=== PATIENT | male | born 1985 | race African-American/Black ===

== ENCOUNTER 2019-04-01 03:05 | Emergency (ER) | payer MEDICAID ==
[~2019-04-01] VITALS: Ht 188 cm; Wt 81.6 kg
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
[2019-04-01 03:10] VITALS: BP 114/67
[2019-04-01] MEDS ORDERED: Lidocaine 1% 10mg/ml/Epi 0.005mg/ml 30ml vial INJ ONE ×2 (03:30→03:44)
[2019-04-01] MEDS ORDERED: Ketorolac 30mg Inj IV ONE (03:30)
[2019-04-01] MEDS ORDERED: Neosporin Oint Ud Pkt TOP ONE (03:30)
[2019-04-01] MEDS ORDERED: Morphine Sulfate 2mg/ml Inj(IV/IM USE ONLY) IVP ONE (03:30)
[2019-04-01] MEDS ORDERED: Tetanus/Diptheria/Pertussis IM ONE ×2 (03:30→03:39)
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
[2019-04-01] MEDS ORDERED: Neosporin Opth Oint ONE (03:38)
[2019-04-01] MEDS ORDERED: Morphine Sulfate 2mg/ml Inj(IV/IM USE ONLY) ONE (03:38)
[2019-04-01] MEDS ORDERED: Lidocaine 1% Plain 30 ml INJ ONE (03:38)
[2019-04-01 03:39] LABS: APPEARANCE,URINE CLEAR; BILIRUBIN, URINE NEGATIVE (NEGATIVE); COLOR,URINE PALE YELLOW; GLUCOSE, URINE (UA) NEGATIVE (NEGATIVE); KETONES,URINE NEGATIVE (NEGATIVE); LEUKOCYTE ESTERASE ,URINE NEGATIVE (NEGATIVE); NITRITE,URINE NEGATIVE (NEGATIVE); PH,URINE 5 (4.5-8.0); PROTEIN,URINE NEGATIVE (NEGATIVE); UROBILINOGEN,URINE NORMAL MG/DL (0.0-1.0)
[2019-04-01] MEDS ORDERED: Ketorolac 30mg Inj ONE (03:39)
[2019-04-01 03:40] LABS: BASOPHILS % (AUTO) 0.8 % (0.0-2.0); EOSINOPHILS % (AUTO) 1.2 % (0.0-3.0); HEMATOCRIT 48.4 % (42.0-52.0); HEMOGLOBIN 15.6 G/DL (14.2-18.0); LYMPHOCYTES % (AUTO) 34.5 % (20.0-45.0); MEAN CORPUSCULAR VOLUME 84 FL (80-99); MONOCYTES % (AUTO) 9.6 % (1.0-10.0); NEUTROPHILS % (AUTO) 53.8 % (45.0-75.0); PLATELET COUNT 263 K/UL (150-450); RED BLOOD COUNT 5.77 M/UL (4.70-6.10); RED CELL DISTRIBUTION WIDTH 12.8 % (11.6-14.8); WHITE BLOOD COUNT 7.1 K/UL (4.8-10.8)
[2019-04-01] MEDS ORDERED: Neosporin Oint Ud Pkt TOPIC ONE (03:44)
--- NOTE | 2019-04-01 03:45 | NUR ---
ED Nurse Note: Patient tolerated medication well. Marked decrease in pain witnessed.
[2019-04-01 03:52] LABS: ANION GAP 12 mmol/L (5-15); BLOOD UREA NITROGEN 13 mg/dL (7-18); CALCIUM 8.4 MG/DL (8.5-10.1); CARBON DIOXIDE 23 MMOL/L (21-32); CHLORIDE 101 MMOL/L (98-107); SODIUM 136 MMOL/L (136-145)
[2019-04-01 03:57] LABS: ALANINE AMINOTRANSFERASE 41 U/L (12-78); ALBUMIN 4.5 G/DL (3.4-5.0); ALBUMIN/GLOBULIN RATIO 1.5 (1.0-2.7); ALKALINE PHOSPHATASE 78 U/L (46-116); ASPARTATE AMINO TRANSFERASE 32 U/L (15-37); BILIRUBIN,TOTAL 0.9 MG/DL (0.2-1.0)
--- NOTE | 2019-04-01 04:14 | NUR ---
ED Nurse Note: Patient going down for CT.
--- NOTE | 2019-04-01 05:13 | Diagnostic Imaging Report ---
EXAM: CT Lumbar Spine Without Intravenous Contrast CLINICAL HISTORY: TRAUMA TECHNIQUE: Axial computed tomography images of the lumbar spine without intravenous contrast. CTDI is 18.3 mGy and DLP is 709 mGy-cm. One or more of the following dose reduction techniques were used: automated exposure control, adjustment of the mA and/or kV according to patient size, use of iterative reconstruction technique. COMPARISON: No relevant prior studies available. FINDINGS: Vertebrae: Unremarkable. No acute fracture. Discs/spinal canal/neural foramina: No acute findings. No spinal canal stenosis. Soft tissues: Unremarkable. IMPRESSION: Normal lumbar spine CT.
--- NOTE | 2019-04-01 05:14 | NUR ---
ED Nurse Note: Patient in and out of sleep, vital signs stable, friend at bedside. will continue to monitor.
--- NOTE | 2019-04-01 05:27 | Diagnostic Imaging Report ---
ADDENDUM - Added by Fariba Hughes MD on 04/01/2019 5:36 AM (-07:00) There is also a small amount of pneumocephalus and subarachnoid hemorrhage over the left frontal region, adjacent to the fractures involving the left orbital roof. EXAM: CT Head Without Intravenous Contrast CLINICAL HISTORY: TRAUMA TECHNIQUE: Axial computed tomography images of the head/brain without intravenous contrast. CTDI is 70 mGy and DLP is 1393 mGy-cm. One or more of the following dose reduction techniques were used: automated exposure control, adjustment of the mA and/or kV according to patient size, use of iterative reconstruction technique. COMPARISON: No relevant prior studies available. FINDINGS: Brain: There is a small amount of acute subarachnoid hemorrhage in the left sylvian fissure anteriorly. No other acute area of intracranial hemorrhage is seen. There is no evidence of mass effect or edema within the brain parenchyma. Ventricles: Unremarkable. No ventriculomegaly. Bones/joints: There are nondisplaced fractures of the left orbit, including the orbital roof-please see the report of the CT facial bones for details. There are postsurgical changes from fixation of old facial fractures. Soft tissues: There is mild scalp soft tissue swelling over the left frontal region. Sinuses: Unremarkable as visualized. No acute sinusitis. Mastoid air cells: Unremarkable as visualized. No mastoid effusion. IMPRESSION: 1. Small amount of acute subarachnoid hemorrhage in the left sylvian fissure. No other acute intracranial abnormal. 2. Acute nondisplaced left orbital fractures- please see the report of CT facial bones for details. <MYCVCSECTION> Critical Value Communications 04/01/19 05:57 Call Doctor Regarding Intracranial Hemorrhage, called Dr. Amado on 04/01 05:56 (-07:00)
--- NOTE | 2019-04-01 05:29 | Diagnostic Imaging Report ---
EXAM: CT Cervical Spine Without Intravenous Contrast CLINICAL HISTORY: TRAUMA TECHNIQUE: Axial computed tomography images of the cervical spine without intravenous contrast. CTDI is 18.3 mGy and DLP is 451 mGy-cm. One or more of the following dose reduction techniques were used: automated exposure control, adjustment of the mA and/or kV according to patient size, use of iterative reconstruction technique. COMPARISON: No relevant prior studies available. FINDINGS: Limitations: Images through the inferior aspect of the cranium are limited due to patient motion artifact-left orbital fractures are noted- please see the report of the CT facial bones for details. Vertebrae: Normal cervical spine-no evidence of acute fracture or subluxation. Discs/spinal canal/neural foramina: No acute findings. No spinal canal stenosis. Soft tissues: Unremarkable. IMPRESSION: 1. Normal cervical spine. 2. Left orbital fractures-please see the report of the CT facial bones for details. <MYCVCSECTION> Critical Value Communications 04/01/19 05:58 Verify Receipt Verified receipt with [facility]- given to DR Amado on 04/01 05:58 (-07:00)
--- NOTE | 2019-04-01 05:42 | Diagnostic Imaging Report ---
EXAM: CT Maxillofacial Without Intravenous Contrast CLINICAL HISTORY: TRAUMA TECHNIQUE: Axial computed tomography images of the face without intravenous contrast. CTDI is 28.2 mGy and DLP is 597 mGy-cm. One or more of the following dose reduction techniques were used: automated exposure control, adjustment of the mA and/or kV according to patient size, use of iterative reconstruction technique. COMPARISON: No relevant prior studies available. FINDINGS: There is a comminuted fracture involving the left orbital roof. There is minimal inferior displacement of a few of the fracture fragments. A small amount of air is seen within the orbit superiorly, adjacent to the fractures. There is also an acute fracture through the roof of the left ethmoid sinus/cribriform plate. The lateral aspect of the fracture is minimally depressed. There are bilateral nasal bone fractures, of indeterminate age. There has been fixation of a fracture along the superior aspect of the left nasal bone. There are also post surgical changes from old fractures involving the anterior kidd of both maxillary sinuses. The left globe is intact. There is no evidence of significant edema intraorbital hematoma. There is slight inferior depression of the superior rectus muscle by the small amount of air within the orbit- the intraocular rectus muscles are otherwise unremarkable. There is a minimal amount of pneumocephalus adjacent to the left orbital and cribriform plate fractures as well as a small amount of subarachnoid hemorrhage over the left frontal lobe, adjacent to the fractures. IMPRESSION: Fractures through the left orbital roof and left cribriform plate with associated small amount of pneumocephalus and subarachnoid hemorrhage over the left frontal lobe.
--- NOTE | 2019-04-01 05:52 | NUR ---
Face sheet and all CT reports faxed to [facility].Contacted [facility], they received them, will call back.
[2019-04-01] MEDS ORDERED: cefTRIAXone 1 GM in NS 55 ML IVPB ONE (06:00)
[2019-04-01] MEDS ORDERED: levETIRAcetam 500mg/NS100ml 100 ML IVPB ONE ×2 (06:00→06:09)
[2019-04-01 06:59] VITALS: BP 105/97
--- NOTE | 2019-04-01 07:04 | NUR ---
ED Nurse Note: PAtient is resting comfortably, no s/s of acute distress or pain. friend at bedside, vital signs stable and updated.
--- NOTE | 2019-04-01 07:19 | NUR ---
HAND-OFF: Report given to Karin YAN.
--- NOTE | 2019-04-01 07:20 | NUR ---
ED Nurse Note: Received patient in bed. Patient is resting comfortably in bed, vss, arousable by voice. friend at bedside. patient reports no medical history.
[2019-04-01 08:21] VITALS: BP 107/52
--- NOTE | 2019-04-01 08:37 | NUR ---
ED Nurse Note: Patient is being transferred to [facility]. Report given to Anne Marie YAN. Patient is sleepy but arouses easily. patient's vss. patient is being transferred with all of his belongings.
[2019-04-01 08:41] VITALS: BP 106/65
[2019-04-01 08:44] VITALS: BP 106/65
== END 2019-04-01 08:44 | disposition short-term general hospital (02) ==
LOC: EMR 03:53
DX: S30.0XXA Contusion of lower back and pelvis, initial encounter (principal); S01.81XA Laceration without foreign body of other part of head, initial encounter; S02.80XB Fracture of other specified skull and facial bones, unspecified side, initial encounter for open fracture; S09.90XA Unspecified injury of head, initial encounter; I60.9 Nontraumatic subarachnoid hemorrhage, unspecified; Z23 Encounter for immunization
CPT/HCPCS: 12051; 36415; 70450; 70486; 72125; 72131; 80053; 80307; 80329; 81001; 85025; 85610; 85730; 90471; 90715; 96361; 96365; 96375; 99291; J0696; J1885; J1953; J2270; J2405; Z7502